=== PATIENT | female | born 1990 | race American Indian/Alaskan Native ===

== ENCOUNTER 2018-08-26 12:30 | Emergency (ER) | payer OTHER ==
--- NOTE | 2018-08-26 12:48 | Emergency Department Report ---
ED General Adult HPI - General Stated complaint: ABD PAIN Time Seen by Provider: 08/26/18 12:47 Source: patient Mode of arrival: Stretcher - History of Present Illness Initial comments: The patient presents to the emergency department via EMS for abdominal pain. Upon initial evaluation of the patient she refused to answer any questions concerning private medical history only history of this onset of pain. Patient states she was getting the " fuck out of here" and did not want to be treated by this hospital. My evaluation the patient is completely stable and is not crying or wincing in pain -: Sudden Location: abdomen Consistency: intermittent Improves with: none Worsens with: none Associated Symptoms: denies other symptoms Treatments Prior to Arrival: none - Related Data Previous Rx's Medication Instructions Recorded Last Taken Type Hydrocodone Bit/Acetaminophen 1 each PO Q4-6H PRN #7 tablet 04/18/13 Unknown Rx [Lortab 5-500 Tablet] Ibuprofen [Motrin] 800 mg PO TID PRN #25 tablet 04/18/13 Unknown Rx Acetaminophen/Codeine [Tylenol #3] 1 tab PO TID PRN #9 tab 11/01/14 Unknown Rx methOCARBAMOL [Robaxin TAB] 500 mg PO BID #20 tab 11/01/14 Unknown Rx Allergies Allergy/AdvReac Type Severity Reaction Status Date / Time No Known Allergies Allergy Verified 11/01/14 14:57 ED Review of Systems ROS: Stated complaint: ABD PAIN Other details as noted in HPI Comment: All other systems reviewed and negative Constitutional: denies: chills, fever Eyes: denies: eye pain, eye discharge, vision change ENT: denies: ear pain, throat pain Respiratory: denies: cough, shortness of breath, wheezing Cardiovascular: denies: chest pain, palpitations Endocrine: no symptoms reported Gastrointestinal: abdominal pain. denies: nausea, diarrhea Genitourinary: denies: urgency, dysuria, discharge Musculoskeletal: denies: back pain, joint swelling, arthralgia Skin: denies: rash, lesions Neurological: denies: headache, weakness, paresthesias Psychiatric: denies: anxiety, depression Hematological/Lymphatic: denies: easy bleeding, easy bruising ED Past Medical Hx - Social History Smoking Status: Current Every Day Smoker Substance Use Type: None - Medications Home Medications: Home Medications Medication Instructions Recorded Confirmed Last Taken Type Hydrocodone Bit/Acetaminophen 1 each PO Q4-6H PRN #7 tablet 04/18/13 Unknown Rx [Lortab 5-500 Tablet] Ibuprofen [Motrin] 800 mg PO TID PRN #25 tablet 04/18/13 Unknown Rx Acetaminophen/Codeine [Tylenol #3] 1 tab PO TID PRN #9 tab 11/01/14 Unknown Rx methOCARBAMOL [Robaxin TAB] 500 mg PO BID #20 tab 11/01/14 Unknown Rx ED Physical Exam - General General appearance: alert, in no apparent distress, other (belligerent and screaming at staff) - Head Head exam: Present: atraumatic, normocephalic - Eye Eye exam: Present: normal appearance, PERRL, EOMI - ENT ENT exam: Present: mucous membranes moist - Neck Neck exam: Present: normal inspection - Respiratory Respiratory exam: Present: normal lung sounds bilaterally. Absent: respiratory distress, wheezes, rales - Cardiovascular Cardiovascular Exam: Present: regular rate, normal rhythm. Absent: systolic murmur, diastolic murmur, rubs, gallop - GI/Abdominal GI/Abdominal exam: Present: soft, normal bowel sounds. Absent: distended, t enderness - Extremities Exam Extremities exam: Present: normal inspection - Back Exam Back exam: Present: normal inspection - Neurological Exam Neurological exam: Present: alert, oriented X3, CN II-XII intact. Absent: motor sensory deficit - Psychiatric Psychiatric exam: Present: normal affect, normal mood - Skin Skin exam: Present: warm, dry, intact, normal color. Absent: rash ED Course Vital Signs 08/26/18 08/26/18 12:44 12:49 Pulse Rate 103 H Respiratory 34 H 34 H Rate Blood Pressure 127/98 Blood Pressure 127/98 [Right] O2 Sat by Pulse 99 99 Oximetry ED Medical Decision Making - Medical Decision Making Patient completely refused to his appendix treatment or have laboratory studies and imaging done stating she will go somewhere else. My concerns with the patient and need for complete workup but the patient adamantly denied and left AGAINST MEDICAL ADVICE Patient voiced understanding of risk of leaving hospital AGAINST MEDICAL ADVICE Patient refused to sign any paperwork including the AMA paperwork Critical care attestation.: If time is entered above; I have spent that time in minutes in the direct care of this critically ill patient, excluding procedure time. ED Disposition Clinical Impression: Abdominal pain Disposition: DC-07 LEFT AGAINST MED ADVICE Is pt being admited?: No Does the pt Need Aspirin: No Condition: Stable Forms: AMA Form Time of Disposition: 12:54
[2018-08-26 12:51] VITALS: BP 127/98
== END 2018-08-26 12:58 | disposition left against medical advice (07) ==
LOC: ED 12:30
DX: R10.9 Unspecified abdominal pain (principal); F17.200 Nicotine dependence, unspecified, uncomplicated; Z79.899 Other long term (current) drug therapy
CPT/HCPCS: 99283

== ENCOUNTER 2020-12-16 22:08 | Emergency (ER) | payer OTHER ==
[2020-12-17 00:05] VITALS: BP 148/93
--- NOTE | 2020-12-17 00:14 | Emergency Department Report ---
ED General Adult HPI - General Chief complaint: Dental/Oral Stated complaint: HEADACHE/TOOTHACHE Source: patient Mode of arrival: Ambulatory Limitations: No Limitations - History of Present Illness Initial comments: Patient is a 30-year-old -[place]ish female with a history of morbid obesity presents to the ED with complaint of acute onset persistent left maxillary premolar molar toothaches with swollen gums for the last 2 days. Patient states that the pain radiates from her left cheek to the left sikhism with persistent headache. Patient denies traumatic injury, fever, chills, nausea, vomiting, change in vision, sore throat, nasal and sinus congestion, hearing loss, dizziness, syncope, neck pain, chest pain or shortness of breath. MD Complaint: Left maxillary premolar and molar toothache with swollen gum -: Sudden, days(s) (2) Location: mouth Radiation: non-radiation Severity scale (0 -10): 7 Quality: aching, sharp Consistency: constant Improves with: none Worsens with: none Associated Symptoms: headaches. denies: confusion, chest pain, cough, diaphoresis, fever/chills, loss of appetite, malaise, nausea/vomiting, rash, seizure, shortness of breath, syncope, weakness Treatments Prior to Arrival: none - Related Data Previous Rx's Medication Instructions Recorded Last Taken Type Hydrocodone Bit/Acetaminophen 1 each PO Q4-6H PRN #7 tablet 04/18/13 Unknown Rx [Lortab 5-500 Tablet] methOCARBAMOL [Robaxin TAB] 500 mg PO BID #20 tab 11/01/14 Unknown Rx Acetaminophen/Codeine [Tylenol 1 tab PO TID PRN #12 tab 12/17/20 Unknown Rx /Codeine # 3 tab] Clindamycin [Clindamycin CAP] 300 mg PO Q8HR #60 capsule 12/17/20 Unknown Rx Ibuprofen [Motrin 800 MG tab] 800 mg PO TID PRN #30 tablet 12/17/20 Unknown Rx Allergies Allergy/AdvReac Type Severity Reaction Status Date / Time No Known Allergies Allergy Verified 12/16/20 23:56 ED Review of Systems ROS: Stated complaint: HEADACHE/TOOTHACHE Other details as noted in HPI Constitutional: denies: chills, fever Eyes: denies: eye pain, eye discharge, vision change ENT: dental pain (Swelling, severely tender left maxillary gingiva, severely tender left maxillary premolar and molar teeth). denies: ear pain, throat pain Respiratory: denies: cough, shortness of breath, wheezing Cardiovascular: denies: chest pain, palpitations Endocrine: no symptoms reported Gastrointestinal: denies: abdominal pain, nausea, diarrhea Genitourinary: denies: urgency, dysuria, discharge Musculoskeletal: denies: back pain, joint swelling, arthralgia Skin: denies: rash, lesions Neurological: headache. denies: weakness, paresthesias Psychiatric: denies: anxiety, depression Hematological/Lymphatic: denies: easy bleeding, easy bruising ED Past Medical Hx - Past Medical History Hx Asthma: Yes - Social History Smoking Status: Current Every Day Smoker Substance Use Type: None - Medications Home Medications: Home Medications Medication Instructions Recorded Confirmed Last Taken Type Hydrocodone Bit/Acetaminophen 1 each PO Q4-6H PRN #7 tablet 04/18/13 Unknown Rx [Lortab 5-500 Tablet] methOCARBAMOL [Robaxin TAB] 500 mg PO BID #20 tab 11/01/14 Unknown Rx Acetaminophen/Codeine [Tylenol 1 tab PO TID PRN #12 tab 12/17/20 Unknown Rx /Codeine # 3 tab] Clindamycin [Clindamycin CAP] 300 mg PO Q8HR #60 capsule 12/17/20 Unknown Rx Ibuprofen [Motrin 800 MG tab] 800 mg PO TID PRN #30 tablet 12/17/20 Unknown Rx ED Physical Exam - General Limitations: No Limitations General appearance: alert, in no apparent distress - Head Head exam: Present: atraumatic, normocephalic, normal inspection - Eye Eye exam: Present: normal appearance, PERRL, EOMI Pupils: Present: normal accommodation - ENT ENT exam: Present: mucous membranes moist, TM's normal bilaterally, normal external ear exam, other (Swollen, severely tender left maxillary gingiva; severely tender left maxillary premolar and molar teeth) - Neck Neck exam: Present: normal inspection, full ROM - Respiratory Respiratory exam: Present: normal lung sounds bilaterally. Absent: respiratory distress, wheezes, rales, rhonchi, chest wall tenderness, accessory muscle use, prolonged expiratory, other - Cardiovascular Cardiovascular Exam: Present: regular rate, normal rhythm, normal heart sounds. Absent: systolic murmur, diastolic murmur, rubs, gallop - GI/Abdominal GI/Abdominal exam: Present: soft, normal bowel sounds. Absent: tenderness, guarding, rebound, hyperactive bowel sounds, hypoactive bowel sounds, organomegaly, mass - Extremities Exam Extremities exam: Present: normal inspection, full ROM, normal capillary refill - Back Exam Back exam: Present: normal inspection, full ROM. Absent: tenderness, CVA tenderness (R), CVA tenderness (L), muscle spasm, paraspinal tenderness, vertebral tenderness - Neurological Exam Neurological exam: Present: alert, oriented X3, CN II-XII intact, normal gait, reflexes normal - Psychiatric Psychiatric exam: Present: normal affect, normal mood - Skin Skin exam: Present: warm, dry, intact, normal color. Absent: rash ED Course Vital Signs 12/16/20 12/17/20 23:58 00:23 Temperature 98.3 F Pulse Rate 72 73 Respiratory 18 16 Rate Blood Pressure 148/93 O2 Sat by Pulse 75 L 100 Oximetry ED Medical Decision Making - Medical Decision Making This is a 30-year-old -[place]ish female with a history of morbid obesity presents to the ED with complaint of acute onset persistent left maxillary premolar molar toothaches with swollen gums for the last 2 days. Patient states that the pain radiates from her left cheek to the left sikhism with persistent headache. In the ED, patient is alert and oriented x3 and is not in any distress. Patient was discharged home on medication and advised to follow-up with her dentist in 7 to 10 days for reevaluation. Patient will advise return to the ED immediately if symptoms get worse - Differential Diagnosis dental abscess; gingivitis; dental caries; tension headache Critical care attestation.: If time is entered above; I have spent that time in minutes in the direct care of this critically ill patient, excluding procedure time. ED Disposition Clinical Impression: Acute gingivitis, Dental abscess Disposition: HOME / SELF CARE / HOMELESS Is pt being admited?: No Does the pt Need Aspirin: No Condition: Stable Instructions: Dental Abscess, [id number], Trench Mouth Additional Instructions: Take medication with food, drink plenty of fluids and follow-up. Dentist in 7 to 10 days for reevaluation. Return to the ED immediately if symptoms get worse. Prescriptions: Clindamycin [Clindamycin CAP] 300 mg PO Q8HR #60 capsule Ibuprofen [Motrin 800 MG tab] 800 mg PO TID PRN #30 tablet PRN Reason: Pain Acetaminophen/Codeine [Tylenol /Codeine # 3 tab] 1 tab PO TID PRN #12 tab PRN Reason: Breakthrough Pain Referrals: [facility] [Outside] - 7-10 days Time of Disposition: 00:14 Print Language: URDU
== END 2020-12-17 00:44 | disposition home or self-care (01) ==
LOC: ED 22:08
DX: K05.00 Acute gingivitis, plaque induced (principal); L02.91 Cutaneous abscess, unspecified; E66.01 Morbid (severe) obesity due to excess calories; Z87.09 Personal history of other diseases of the respiratory system; F17.200 Nicotine dependence, unspecified, uncomplicated
CPT/HCPCS: 99281

== ENCOUNTER 2021-07-18 23:13 | Emergency (ER) | payer OTHER ==
[2021-07-18 23:51] VITALS: BP 146/94
[2021-07-19 00:27] LABS: Basophils % (Auto) 0.2 % (0.0-1.8); Eosinophils # (Auto) 0.1 K/mm3 (0.0-0.4); Eosinophils % (Auto) 1.7 % (0.0-4.3); Hematocrit 41.5 % (30.3-42.9); Hemoglobin 13.5 gm/dl (10.1-14.3); Lymphocytes # (Auto) 1.6 K/mm3 (1.2-5.4); Lymphocytes % (Auto) 21.4 % (13.4-35.0); Mean Corpuscular HGB Conc 32 % (30-34); Mean Corpuscular Volume 82 fl (79-97); Monocytes # (Auto) 0.4 K/mm3 (0.0-0.8); Monocytes % (Auto) 5.3 % (0.0-7.3); Platelet Count 253 K/mm3 (140-440); Red Blood Count 5.05 M/mm3 (3.65-5.03); Red Cell Distribution Width 15.2 % (13.2-15.2)
[2021-07-19 00:43] LABS: Alanine Aminotransferase 16 units/L (7-56); Albumin 4.4 g/dL (3.9-5); BUN/Creatinine Ratio 19; Blood Urea Nitrogen 15 mg/dL (7-17); Calcium 9.6 mg/dL (8.4-10.2); Hemolysis Index 4
[2021-07-19 01:07] LABS: Bacteria,Urine 1+ /HPF (Negative); Bilirubin,Urine NEG (Negative); Blood,Urine NEG (Negative); Color,Urine Yellow (Yellow); Mucus,Urine 1+ /HPF; Protein,Urine <15 mg/dL mg/dL (Negative)
== END 2021-07-19 02:48 | disposition left against medical advice (07) ==
LOC: ED 23:13
DX: R11.10 Vomiting, unspecified (principal); Z53.21 Procedure and treatment not carried out due to patient leaving prior to being seen by health care provider
CPT/HCPCS: 36415; 80053; 81001; 84703; 85025; 87086

== ENCOUNTER 2021-07-19 11:11 | Emergency (ER) | payer OTHER ==
[2021-07-19 12:15] VITALS: BP 136/79
[2021-07-19 14:13] LABS: Bilirubin,Urine NEG (Negative); Blood,Urine NEG (Negative); Color,Urine Yellow (Yellow); Mucus,Urine 1+ /HPF; Protein,Urine <15 mg/dL mg/dL (Negative)
== END 2021-07-19 14:05 | disposition left against medical advice (07) ==
LOC: ED 11:11
DX: R11.10 Vomiting, unspecified (principal); Z53.21 Procedure and treatment not carried out due to patient leaving prior to being seen by health care provider
CPT/HCPCS: 81001